=== PATIENT | female | born 1990 ===

== ENCOUNTER 2021-04-27 11:09 | Inpatient (IN) | payer OTHER ==
[~2021-04-27] VITALS: Ht 160 cm; Wt 82.2 kg
[2021-04-27] MEDS ORDERED: PREN1TAB10 PO (13:01)
[2021-04-27] MEDS ORDERED: FAMO-185 PO (13:02)
[2021-04-27 13:49] VITALS: BP 121/80
[2021-04-27] MEDS ORDERED: D5%-LACTATED RINGERS 1,000 ML IV SCH (14:00)
[2021-04-27] MEDS ORDERED: TERBUTALINE 1 MG/ML, 1ML IVPush PRN (14:00)
[2021-04-27] MEDS ORDERED: OXYTOCIN 30U/ 0.9% NaCL 500ML 500 ML IV ONE (14:00)
[2021-04-27] MEDS ORDERED: LACTATED RINGERS 1,000 ML IV SCH ×2 (14:00→16:30)
[2021-04-27] MEDS ORDERED: FENTANYL PF 100 MCG/2ML IV PRN (14:00)
[2021-04-27] MEDS ORDERED: ONDANSETRON 2MG/ML, 2ML IVPush PRN ×2 (14:00→16:30)
[2021-04-27] MEDS ORDERED: TERBUTALINE 1 MG/ML, 1ML SQ PRN (14:00)
[2021-04-27] MEDS ORDERED: FENTANYL PF 100 MCG/2ML IVPush PRN (14:00)
[2021-04-27] MEDS ORDERED: CALCIUM CARBONATE 500 MG TAB.CHEW PO PRN (14:00)
[2021-04-27] MEDS ORDERED: MISOPROSTOL 200 MCG TABLET ONE (14:28)
[2021-04-27] MEDS ORDERED: NEWBORN KIT ONE (14:28)
[2021-04-27] MEDS ORDERED: LIDOCAINE 1%, 20ML ONE (14:28)
[2021-04-27 14:39] LABS: BASOPHILS % (AUTO) 0 % (0-1); EOSINOPHILS % (AUTO) 1 % (1-7); LYMPHOCYTES % (AUTO) 13 % (22-44); MEAN CORPUSCULAR HEMOGLOBIN 30.6 pg (27.0-34.8); MEAN CORPUSCULAR HGB CONC 33.8 g/dL (32.4-35.8); MEAN PLATELET VOLUME 9.4 fL (7.4-10.4); MONOCYTES % (AUTO) 5 % (2-9); NEUTROPHILS % (AUTO) 81 % (42-75); PLATELET COUNT 226 x10^3/uL (130-400); RED BLOOD COUNT 4.74 x10^6/uL (3.82-5.3); RED CELL DISTRIBUTION WIDTH 13.9 % (9.6-15.2)
[2021-04-27] MEDS ORDERED: BUPIVACAINE 0.25% ONE (15:21)
[2021-04-27] MEDS ORDERED: FENTANYL/BUPIV./NS/PF 250 ML EPIDCONT ONE (15:21)
[2021-04-27] MEDS ORDERED: DIPHENHYDRAMINE 50 MG/ML, 1ML IVPush PRN (16:30)
[2021-04-27] MEDS ORDERED: LACTATED RINGERS 1,000 ML IVBOLUS PRN (16:30)
[2021-04-27] MEDS ORDERED: NALOXONE 0.4 MG/ML, 1ML IVPush PRN (16:30)
[2021-04-27] MEDS ORDERED: EPHEDRINE 50 MG/ML, 1ML IVPush PRN (16:30)
[2021-04-27] MEDS ORDERED: FENTANYL/BUPIV./NS/PF 250 ML EPIDCONT SCH (16:30)
[2021-04-27 19:15] VITALS: BP 118/71
[2021-04-28] MEDS ORDERED: OXYTOCIN 30U/ 0.9% NaCL 500ML 500 ML ONE (01:46)
[2021-04-28] MEDS ORDERED: IBUPROFEN 600 MG TABLET ONE (02:18)
[2021-04-28 02:30] VITALS: BP 95/56
[2021-04-28] MEDS: IBUPROFEN 600 MG TABLET PO PRN ×2 (02:38→14:29)
[2021-04-28] MEDS ORDERED: ACETAMINOPHEN 325 MG TABLET PO PRN ×2 (03:00)
[2021-04-28] MEDS ORDERED: CARBOPROST TROMETHAMINE 250 MCG/ML, 1ML IM PRN (03:00)
[2021-04-28] MEDS ORDERED: METHYLERGONOVINE 0.2 MG/ML IM PRN (03:00)
[2021-04-28] MEDS: OXYTOCIN 30U/ 0.9% NaCL 500ML 500 ML IV SCH ×3 (03:00→23:00)
[2021-04-28] MEDS ORDERED: DOCUSATE 100 MG CAPSULE PO PRN (03:00)
[2021-04-28] MEDS ORDERED: MISOPROSTOL 200 MCG TABLET PR PRN (03:00)
[2021-04-28] MEDS ORDERED: SIMETHICONE 80 MG CHEW TAB PO PRN (03:00)
[2021-04-28] MEDS ORDERED: OXYcodone IR 5MG TABLET PO PRN ×2 (03:00)
[2021-04-28 07:30] VITALS: BP 106/70
[2021-04-28] MEDS: PRENATAL VIT/IRON/FA 1 EACH TABLET PO SCH (08:00)
[2021-04-28 08:26] LABS: BASOPHILS % (AUTO) 0 % (0-1); EOSINOPHILS % (AUTO) 0 % (1-7); LYMPHOCYTES % (AUTO) 11 % (22-44); MEAN CORPUSCULAR HEMOGLOBIN 30.2 pg (27.0-34.8); MEAN CORPUSCULAR HGB CONC 33.4 g/dL (32.4-35.8); MEAN PLATELET VOLUME 9.5 fL (7.4-10.4); MONOCYTES % (AUTO) 6 % (2-9); NEUTROPHILS % (AUTO) 83 % (42-75); PLATELET COUNT 202 x10^3/uL (130-400); RED BLOOD COUNT 4.11 x10^6/uL (3.82-5.3)
[2021-04-28 11:34] VITALS: BP 99/62
[2021-04-28 15:35] VITALS: BP 101/65
[2021-04-28 20:00] VITALS: BP 103/67
[2021-04-29] MEDS: IBUPROFEN 600 MG TABLET PO PRN ×2 (02:43→08:58)
[2021-04-29] MEDS: PRENATAL VIT/IRON/FA 1 EACH TABLET PO SCH (08:58)
[2021-04-29 09:00] VITALS: BP 108/72
[2021-04-29] MEDS ORDERED: IBUP-1222 PO (11:12)
[2021-04-29] MEDS ORDERED: DOCU-131 PO (11:12)
[2021-04-29] MEDS ORDERED: DIPH,PERTUSS(ACELL),TET VAC/PF NC IM-VACC ONE ×2 (11:24→11:30)
== END 2021-04-29 13:00 | disposition home or self-care (01) | DRG 807 ==
LOC: LDOP 11:09 → LDIP 13:45 → 2NW 04-28 02:12
PROVIDERS: ADMIT Obstetrics & Gynecology; ATTEND Obstetrics & Gynecology
PROC: 10E0XZZ Delivery of Products of Conception, External Approach (ICD-10-PCS; principal; 2021-04-28)
PROC: 3E0R3BZ Introduction of Anesthetic Agent into Spinal Canal, Percutaneous Approach (ICD-10-PCS; 2021-04-28)
PROC: 00HU33Z Insertion of Infusion Device into Spinal Canal, Percutaneous Approach (ICD-10-PCS; 2021-04-28)
DX: O77.0 Labor and delivery complicated by meconium in amniotic fluid (principal); Z37.0 Single live birth; Z3A.37 37 weeks gestation of pregnancy; Z85.71 Personal history of Hodgkin lymphoma
CPT/HCPCS: 36415; 82803; 85025; 86592; 86850; 86900; 87635; 90715; G0378; J3010; J2590; J7120